=== PATIENT | male | born 1980 ===

== ENCOUNTER 2020-05-04 17:06 | Emergency (ER) | payer BC, OTHER ==
[~2020-05-04] VITALS: Ht 162.6 cm; Wt 64.7 kg
[2020-05-04 17:16] VITALS: BP 117/78
--- NOTE | 2020-05-04 17:45 | NUR ---
ATTEMPTED TO PERFORM VISUAL ACUITIES. PATIENT UNABLE TO READ THE TOP LINE WITH EITHER OR BOTH EYES. DR. HARO NOTIFIED.
[2020-05-04] MEDS ORDERED: FLUORESCEIN OPHTHALMIC 1 MG STRIP ONE (17:53)
[2020-05-04] MEDS ORDERED: PROPARACAINE OPHTH 0.5%, 15ML ONE (17:53)
[2020-05-04] MEDS ORDERED: OXYcodone/APAP 5/325MG TABLET ONE (18:07)
[2020-05-04] MEDS ORDERED: ONDANSETRON ODT 4 MG ONE (18:07)
--- NOTE | 2020-05-04 18:20 | NUR ---
PT MEDICATED PER AUG AND IS RESTING. AWAITING OPTHO CONSULT.
--- NOTE | 2020-05-04 18:29 | NUR ---
CYCLOPENTOLATE DROPS REQUESTED FROM PHARMACY.
[2020-05-04] MEDS ORDERED: CYCLOPENTOLATE 2% LEFTEYE ONE (18:30)
[2020-05-04] MEDS ORDERED: ONDANSETRON ODT 4 MG PO ONE (18:30)
[2020-05-04] MEDS ORDERED: OXYcodone/APAP 5/325MG TABLET PO ONE (18:30)
--- NOTE | 2020-05-04 18:58 | NUR ---
BEDSIDE REPORT FROM JOVANNI JORDAN ASSUMING CARE OF PT AT THIS TIME.
--- NOTE | 2020-05-04 19:05 | NUR ---
OPTHO AT BEDSIDE
--- NOTE | 2020-05-04 20:06 | NUR ---
Patient and spouse given discharge instructions and prescription and they have confirmed that they understand the instructions. All patient belongings gathered and taken with patient. Patient ambulatory with steady gait from ED.
== END 2020-05-04 20:07 | disposition home or self-care (01) ==
LOC: ED 19:12
DX: S05.12XA Contusion of eyeball and orbital tissues, left eye, initial encounter (principal); S05.02XA Injury of conjunctiva and corneal abrasion without foreign body, left eye, initial encounter; R42 Dizziness and giddiness; R51.9 Headache, unspecified; R11.0 Nausea; F17.210 Nicotine dependence, cigarettes, uncomplicated; X58.XXXA Exposure to other specified factors, initial encounter; Y93.89 Activity, other specified; Y92.89 Other specified places as the place of occurrence of the external cause; Y99.8 Other external cause status
CPT/HCPCS: 99283; Q0162